=== PATIENT | female | born 1970 | race African-American/Black ===

== ENCOUNTER 2017-12-16 14:40 | Emergency (ER) | payer SELFPAY ==
[~2017-12-16] VITALS: Ht 172.7 cm; Wt 81.8 kg
[2017-12-16] MEDS ORDERED: DEXTRAN 70 0.1%/HYPROMELL 0.3% 0.9 ML OPHTHALMIC SOLUTION [PF] OU ONE (15:30)
[2017-12-16] MEDS ORDERED: KETOROLAC TROMETHAMINE 30 MG/ML VIAL IM ONE (15:30)
[2017-12-16 16:39] VITALS: BP 102/52
== END 2017-12-16 16:40 | disposition home or self-care (01) ==
LOC: EMS 14:41
DX: R51 Headache (principal); M25.511 Pain in right shoulder; M25.512 Pain in left shoulder; F12.90 Cannabis use, unspecified, uncomplicated; F17.210 Nicotine dependence, cigarettes, uncomplicated; Z77.098 Contact with and (suspected) exposure to other hazardous, chiefly nonmedicinal, chemicals
CPT/HCPCS: 96372; 99173; 99283; 99406; J1885